=== PATIENT | male | born 1945 | race Caucasian/White ===

== ENCOUNTER → 2017-09-18 | Outpatient (CLI) | payer OTHER ==
[~2017-09-18] MED LIST: IOPAMIDOL (ISOVUE-300) 100 ML BTL ONE
== END ==
LOC: CIMAGING 13:16
PROVIDERS: ATTEND Physician Assistant Medical
DX: R31.9 Hematuria, unspecified (principal); N20.0 Calculus of kidney; N40.0 Benign prostatic hyperplasia without lower urinary tract symptoms; K76.0 Fatty (change of) liver, not elsewhere classified; K57.30 Diverticulosis of large intestine without perforation or abscess without bleeding
CPT/HCPCS: 74178; Q9967

== ENCOUNTER 2017-09-25 11:34 | Emergency (ER) | payer OTHER ==
--- NOTE | 2017-09-25 12:52 | EDPHY ---
H & P Time Seen by Provider: 09/25/17 12:52 HPI/ROS: Chief complaint. Heat sensitive, high blood sugar HPI. 72-year-old male presents emergency department with complaint of elevate but with elevated blood sugar this morning. It was 114. He has been heat sensitive doubt or temps. Increased irritability and lack of patient's last 2 weeks. Slight shortness of breath with exertion going up stairs for the last 2 weeks. No fever, cough, chest discomfort. He feels jittery and nervous. No abdominal pain nausea vomiting. He does have some loose stools. He saw a psychiatrist this morning who referred him to the emergency department. ROS Constitutional. no fever/chills, no weakness Eyes. no problems with vision ENT. no sore throat, no nasal drainage Cardiovascular. no chest pain Respiratory. Shortness of breath with exertion Abdominal. no abdominal pain, no nausea/vomiting, no diarrhea . no problems urinating MS. no calf pain/swelling, no neck/back pain, no joint pain Skin. no rash Lymph. no swollen glands Neuro. Irritable, heat sensitive Past Medical/Surgical History: Past medical history is significant for diabetes, bipolar, hypertension Social History: , nonsmoker, no alcohol Smoking Status: Never smoked Physical Exam: General Appearance: Alert well-developed male mild distress vital signs are stable Eyes: Pupils equal and round no pallor or injection. ENT, Mouth: Mucous membranes are moist. Respiratory: There are no retractions, lungs are clear to auscultation. Cardiovascular: Regular rate and rhythm. Gastrointestinal: Abdomen is soft and nontender, no masses, bowel sounds normal. Neurological: Awake and alert, sensory and motor exams grossly normal. Skin: Warm and dry, no rashes. Musculoskeletal: Neck is supple nontender. Extremities symmetrical, full range of motion. Psychiatric: Patient is oriented X 3, there is no agitation. Constitutional: Initial Vital Signs Temperature (C) 36.9 C 09/25/17 11:57 Heart Rate 90 09/25/17 11:57 Respiratory Rate 16 09/25/17 11:57 Blood Pressure 133/74 H 09/25/17 11:57 O2 Sat (%) 94 09/25/17 11:57 O2 Delivery Mode Room Air Allergies/Adverse Reactions: No Allergies [NKDA] Allergy (Verified 09/25/17 11:51) SEASONAL Allergy (Intermediate, Uncoded 09/25/17 11:51) ITCHY EYES, NASAL/ SINUS CONGESTION Home Medications: Medication Instructions Recorded Diazepam [Valium 5 MG (RX)] 5 mg PO DAILY PRN 02/12/12 Levothyroxine [Synthroid 112 mcg 112 mcg PO DAILY06 02/12/12 (RX)] Lisinopril [Zestril 40 mg (RX)] 40 mg PO DAILY 02/12/12 Wishek Carbonate [Wishek 600 mg PO HS 02/12/12 Carbonate Cap 300 mg (RX)] Testosterone IM [Testosterone 100 mg IM Q14D 02/12/12 100mg/ml IM inj (RX)] Verapamil HCl [Verapamil ER] 240 mg PO DAILY 02/12/12 ZOLPIDEM TARTRATE [Ambien CR 12.5 12.5 mg PO HS 02/12/12 mg] metFORMIN HCL [Glucophage 500 mg 1,000 mg PO DAILY06 02/12/12 (RX)] Venlafaxine Xr [Effexor Xr] 150 mg PO DAILY 02/13/12 Azelastine HCl 09/25/17 Finasteride 09/25/17 Fluticasone Nasal 09/25/17 Glimepiride 09/25/17 Liothyronine Sodium 09/25/17 Myrbetriq 09/25/17 Oxybutynin 09/25/17 Pantoprazole Sodium 09/25/17 Pioglitazone HCl 09/25/17 Tresiba Flextouch U-100 09/25/17 Trulicity 09/25/17 Medical Decision Making - Diagnostics EKG Interpretation: EKG interpreted by me shows normal sinus rhythm with normal interval and axis. QRS is normal there is no significant ST elevation or depression. No arrhythmia. The rate is 81 Imaging Results: Imaging Impressions Chest X-Ray 09/25/17 13:03 Impression: No acute pulmonary disease. Chest x-ray interpreted by me shows no pneumonia Procedures: IV normal saline. Ativan orally ED Course/Re-evaluation: On re-evaluation patient is stable. Patient and I discussed imaging lab EKG findings. We discussed treatment plan including criteria for return importance of follow-up and further evaluation. He expresses understanding and agreement Differential Diagnosis: I considered electrolyte abnormalities, congestive heart failure, pneumonia, pulmonary embolus, acute coronary syndrome for his shortness of breath. Blood sugar somewhat elevated but no evidence for DKA. - Data Points Laboratory Results: Laboratory Results 09/25/17 12:45 09/25/17 12:45 09/25/17 09/25/17 09/25/17 13:36 12:45 12:45 WBC RBC Hgb Hct MCV MCH MCHC RDW Plt Count MPV Neut % (Auto) Lymph % (Auto) [place] % (Auto) Eos % (Auto) Baso % (Auto) Nucleat RBC Rel Count Absolute Neuts (auto) Absolute Lymphs (auto) Absolute Monos (auto) Absolute Eos (auto) Absolute Basos (auto) Absolute Nucleated RBC Immature Gran % Immature Gran # D-Dimer < 0.27 ug/mLFEU ug/mLFEU (0.00-0.50) Sodium 142 mEq/L mEq/L (135-145) Potassium 5.1 mEq/L H mEq/L (3.3-5.0) Chloride 108 mEq/L mEq/L (97-110) Carbon Dioxide 21 mEq/l L mEq/l (22-31) Anion Gap 13 mEq/L mEq/L (8-16) BUN 22 mg/dL mg/dL (7-23) Creatinine 1.0 mg/dL mg/dL (0.7-1.3) Estimated GFR > 60 Glucose 142 mg/dL H mg/dL (70-100) Calcium 10.2 mg/dL mg/dL (8.5-10.4) POC Troponin I 0.00 ng/mL ng/mL (0.00-0.08) NT-Pro-B Natriuret Pep < 11 pg/mL pg/mL (0-125) Lipase 190 IU/L IU/L (23-300) [place] 0.3 mEq/L L mEq/L (0.6-1.2) 09/25/17 12:45 WBC 8.04 10^3/uL 10^3/uL (3.80-9.50) RBC 4.97 10^6/uL 10^6/uL (4.40-6.38) Hgb 15.7 g/dL g/dL (13.7-17.5) Hct 47.4 % % (40.0-51.0) MCV 95.4 fL fL (81.5-99.8) MCH 31.6 pg pg (27.9-34.1) MCHC 33.1 g/dL g/dL (32.4-36.7) RDW 13.7 % % (11.5-15.2) Plt Count 197 10^3/uL 10^3/uL (150-400) MPV 10.8 fL fL (8.7-11.7) Neut % (Auto) 57.7 % % (39.3-74.2) Lymph % (Auto) 26.6 % % (15.0-45.0) [place] % (Auto) 10.6 % % (4.5-13.0) Eos % (Auto) 3.6 % % (0.6-7.6) Baso % (Auto) 0.6 % % (0.3-1.7) Nucleat RBC Rel Count 0.0 % % (0.0-0.2) Absolute Neuts (auto) 4.64 10^3/uL 10^3/uL (1.70-6.50) Absolute Lymphs (auto) 2.14 10^3/uL 10^3/uL (1.00-3.00) Absolute Monos (auto) 0.85 10^3/uL H 10^3/uL (0.30-0.80) Absolute Eos (auto) 0.29 10^3/uL 10^3/uL (0.03-0.40) Absolute Basos (auto) 0.05 10^3/uL 10^3/uL (0.02-0.10) Absolute Nucleated RBC 0.00 10^3/uL 10^3/uL (0-0.01) Immature Gran % 0.9 % % (0.0-1.1) Immature Gran # 0.07 10^3/uL 10^3/uL (0.00-0.10) D-Dimer Sodium Potassium Chloride Carbon Dioxide Anion Gap BUN Creatinine Estimated GFR Glucose Calcium POC Troponin I NT-Pro-B Natriuret Pep Lipase [place] Medications Given: Discontinued Medications Sodium Chloride (Ns) 1,000 mls @ 0 mls/hr IV EDNOW ONE; Wide Open PRN Reason: Protocol Stop: 09/25/17 12:55 Last Admin: 09/25/17 13:18 Dose: 1,000 mls Lorazepam (Ativan) 1 mg PO EDNOW ONE Stop: 09/25/17 13:05 Last Admin: 09/25/17 13:18 Dose: 1 mg Point of Care Test Results: Chemistry 09/25/17 13:36 POC Troponin I 0.00 ng/mL ng/mL (0.00-0.08) Departure - Departure Disposition: Home, Routine, Self-Care Clinical Impression: Heat exhaustion Qualifiers: Encounter type: initial encounter Qualified Code(s): T67.5XXA - Heat exhaustion , unspecified, initial encounter Condition: Good Instructions: Heat Exhaustion (ED) Additional Instructions: Drink plenty of fluids and stay hydrated. Watch your diet to keep blood sugar under control. Continue regular medications. Return for worsening symptoms. Follow-up with Dr. Snow for further evaluation. Referrals: Lima Martin MD [Primary Care Provider] - 2-3 days without fail
[2017-09-25] MEDS ORDERED: NS 1,000 ML IV ONE (12:54)
[2017-09-25 13:00] LABS: PLATELET COUNT 197 10^3/uL (150-400)
[2017-09-25] MEDS ORDERED: LORazepam 1 MG TAB PO ONE (13:04)
--- NOTE | 2017-09-25 13:39 | CPEKG ---
Heart Rate: 81 RR Interval: 741 P-R Interval: 172 QRSD Interval: 96 QT Interval: 352 QTC Interval: 409 P [place]: 57 QRS [place]: 20 T Wave [place]: 34 EKG Severity - NORMAL ECG - EKG Impression: SINUS RHYTHM Electronically Signed By: Jonathan Harper 25-Sep-2017 15:04:55
[2017-09-25 15:08] VITALS: BP 102/55
== END 2017-09-25 15:10 | disposition home or self-care (01) ==
DX: T67.5XXA Heat exhaustion, unspecified, initial encounter (principal); E86.9 Volume depletion, unspecified; I10 Essential (primary) hypertension; E11.9 Type 2 diabetes mellitus without complications; Z79.84 Long term (current) use of oral hypoglycemic drugs
CPT/HCPCS: 84484-PO